=== PATIENT | female | born 1995 | race Caucasian/White ===

== ENCOUNTER → 2024-01-21 06:24 | Day surgery (SDC) | payer OTHER, SELFPAY ==
[2024-01-21 11:13] LABS: HCG, Urine Qualitative Screen Negative
== END ==
LOC: GI 06:24
PROVIDERS: ATTENDING PHYSICIAN Internal Medicine Gastroenterology
DX: K51.311 Ulcerative (chronic) rectosigmoiditis with rectal bleeding (principal); K51.511 Left sided colitis with rectal bleeding; K64.0 First degree hemorrhoids
CPT/HCPCS: 45380; 88305; 81025; 88342

== ENCOUNTER 2024-02-04 11:38 | Emergency (ER) | payer OTHER, SELFPAY ==
[2024-02-04 11:44] VITALS: BP 124/94
[2024-02-04 12:14] VITALS: BP 114/83
[2024-02-04 12:21] LABS: % Basophils 0.6 % (0-2); % Eosinophils 1.2 % (0-6); % Immature Granulocytes 0.4 % (0-0.5); % Monocytes 7.3 % (1.7-9.3); % Neutrophils 72.5 % (42.2-75.2); Absolute Basophils 0.1 10^3/uL (0-0.2); Absolute Eosinophils 0.1 10^3/uL (0-0.7); Absolute Lymphocytes 1.5 10^3/uL (1.2-3.4); Absolute Monocytes 0.6 10^3/uL (0.1-0.6); Absolute Neutrophils 6.1 10^3/uL (1.4-6.5); Hematocrit 36.9 % (37.0-47.0); Hemoglobin 13.1 g/dL (12.0-16.0); Mean Corp Hgb Conc. 35.5 g/dL (33.0-37.0); Mean Corpuscular Volume 87.4 fL (81.0-99.0); Mean Platelet Volume 9.1 fL (7.4-10.4); Nucleated Red Blood Cells % 0 %; Platelet Count 312 10^3/uL (130-400); Red Blood Cell Count 4.22 10^6/uL (4.20-5.40); Red Cell Dist. Width 11.5 % (11.5-14.5); White Blood Cell Count 8.4 10^3/uL (4.8-10.8)
[2024-02-04 12:33] LABS: ALT (SGPT) 12 U/L (0-35); AST (SGOT) 17 U/L (14-36); Albumin 4.4 g/dl (3.5-5.0); Alkaline Phosphatase 45 U/L (38-126); Blood Urea Nitrogen 14 mg/dl (7-17); Calcium 9.5 mg/dl (8.4-10.2); Carbon Dioxide 25 mmol/L (22-30); Chloride 103 mmol/L (98-107); Glucose 122 mg/dl (70-99); Potassium 3.9 mmol/L (3.5-5.1); Sodium 141 mmol/L (135-145); Total Bilirubin 0.3 mg/dl (0.2-1.3); Total Protein 6.9 g/dl (6.3-8.2); eGFR > 60.00
[2024-02-04] MEDS: NSS 1000 IV (12:42)
[2024-02-04 13:00] VITALS: BP 108/75
--- NOTE | 2024-02-04 13:02 | ED.GENMED ---
History of Present Illness
General
Chief Complaint: Dizziness
Source: patient
Exam Limitations: none
Time Seen by Provider: 02/04/24 12:18
History of Present Illness
History of Present Illness:
29-year-old female with known history of ulcerative colitis presents worsening symptoms of fatigue lightheadedness dizziness and persistent bloody bowel movements. She has close follow-up with GI. She has been on mesalamine and was recently placed
on Uceris. The sensation of lightheadedness seem to start after starting Uceris. She notes bright red bloody stools. No vomiting. She thinks she lost a couple pounds. She notes mild abdominal discomfort consistent with her history of colitis.
No fevers. No other complaints
Past History
Past History
ED Past Medical History: None
ED Past Surgical History: Other (wisdom teeth)
Social History
Tobacco: Non-smoker
Alcohol: Occasional
Drug: None
Personal: Single
Living: with family
Employment: Student
Phy Exam
Physical Exam
Physical Exam:
General: Well-appearing female no acute respiratory distress
HEENT: Normocephalic atraumatic
Heart: Regular rate and rhythm no murmur
Lungs: Clear no wheeze
Abdomen soft mildly diffusely tender no guarding rebound normal bowel sounds
Skin: Somewhat pale
Extremities: No cyanosis
Course
Orders/Labs/Results
Orders:
Orders
02/04/24 12:13
Complete Blood Count/With Diff Urgent
Comprehensive Metabolic Panel Urgent
Ferritin Urgent
Comment: ADD ON
Iron Urgent
Comment: ADD ON
Total Iron Binding Urgent
Comment: ADD ON
02/04/24 12:26
0.9% Sodium Chloride 1000 ml [Nss] 1,000 ml IV BOLUS
02/04/24 13:18
STOOL [C difficile Antigen & Toxins] Urgent
MIRIAN Source: Feces/Stool
Specimen Description:
Date Specimen was Collected: 02/04/24
Time Specimen was Collected: 13:15
Stool Culture Urgent
MIRIAN Source: Feces/Stool
Specimen Description:
Date Specimen was Collected: 02/04/24
Time Specimen was Collected: 13:15
02/04/24 14:57
MethylPREDNISolone PF [Solu-Medrol Pf] 20 mg IV ONCE ONE
02/04/24 16:05
Add On- LAB Urgent
Tests Added?: ferritin, TIBC, Iron
Abnormal Lab Results
02/04/24
12:13
Hct 36.9 L %
(37.0-47.0)
Lymphocytes % 18.0 L %
(20.5-51.1)
Glucose 122 H mg/dl
(70-99)
02/04/24 12:13
02/04/24 12:13
Vital Signs
Initial and Last Documented VS:
Initial Vital Signs
Temp Pulse Resp BP Pulse Ox
98.0 F 116 16 124/94 98
02/04/24 11:44 02/04/24 11:44 02/04/24 11:44 02/04/24 11:44 02/04/24 11:44
Last Documented Vital Signs
Temp Pulse Resp BP Pulse Ox
98.0 F 84 22 99/59 100
02/04/24 11:44 02/04/24 15:00 02/04/24 15:00 02/04/24 15:00 02/04/24 15:00
MDM/Problems Addressed
Differential Diagnosis Includes:
Weakness/lightheadedness with ongoing symptoms consistent with ulcerative colitis flare. Consider anemia versus electrolyte abnormality versus dehydration
Will check labs. Hydrate. GI did call in and is recommending starting the patient on prednisone 40 mg daily if able to go home.
Considered imaging but patient has known history of ulcerative colitis. Will hold off on CT scan for now. Stool studies ordered if able to go
*Critical Care Note
Total Time (30-74mins, 75-104mins- exclusive of procedures): Not Applicable
Update Note
Update Note:
Labs reviewed. Normal hemoglobin. Chemistry profile within normal limits. Discussed findings with GI doctor. Patient wishes to go home. Was given a dose of Solu-Medrol IV after discussing with GI and will start on prednisone 40 mg daily until
she starts her biologic medication. She is to stop her budesonide.
ED Attending Note
-
Portions of this chart may have been created with voice recognition software.� Occasional wrong word or��sound alike� substitutions may have occurred due to the inherent limitations of voice recognition software.
Discharge Plan
Departure
Patient Disposition: Home (Routine Discharge)
Date of Disposition: 02/04/24
Time of Disposition: 16:15
Patient with high blood pressure during this ER visit?: No
Discharge Problem:
Colitis
Instructions: Colitis (DC)
Prescriptions:
New
prednisone 20 mg tablet
40 mg PO DAILY Qty: 30 0RF
No Action
prednisone 20 mg tablet
40 mg PO DAILY 4 Days Qty: 8 0RF
epinephrine [EpiPen] 0.3 mg/0.3 mL auto-injector
0.3 mg IM .STAT PRN (Reason: anaphylaxis) Qty: 1 0RF
Referrals:
Colin Nayak DO [Family Provider] -
Activity Restrictions/Additional Instructions:
Continue drinking plenty of fluids. Stop budesonide tablets. Start prednisone tomorrow. Follow-up with GI. Return if needed otherwise
Interventions
Interventions:
*Risk Screen - Suicide Last Done: 02/04/24 11:44
*General Assessment Last Done: 02/04/24 12:28
*Neglect/Abuse Screening Last Done: 02/04/24 11:44
*ED COVID-19 Vaccine History Last Done: 02/04/24 12:28
ED- Neurological Assessment Last Done: 02/04/24 12:28
Discharge Date and Time
Print Language: NAURUAN
[2024-02-04 14:27] VITALS: BP 112/75
[2024-02-04 15:00] VITALS: BP 99/59
[2024-02-04] MEDS: SOLU-MEDROL PF 20 MG IV (15:10)
[2024-02-04 16:00] VITALS: BP 101/75
[2024-02-04 16:38] LABS: Iron 90 ug/dl (37-170)
[2024-02-04 16:48] LABS: Percent Saturation 20 % (20-50); Total Iron Binding Capacity 447 ug/dl (265-497)
[2024-02-04 17:14] LABS: Ferritin 7.4 ng/ml (6.24-137)
== END 2024-02-04 16:48 | disposition home or self-care (01) ==
LOC: EMR 11:38
PROVIDERS: EMERGENCY PHYSICIAN Emergency Medicine; FAMILY PHYSICIAN Family Medicine
DX: R11.2 Nausea with vomiting, unspecified (principal); R42 Dizziness and giddiness; K51.911 Ulcerative colitis, unspecified with rectal bleeding; Z88.2 Allergy status to sulfonamides
CPT/HCPCS: 99284; 96374; 96361; 80053; 82728; 83540; 83550; 85025; 87045; 87046; 87324; 87427; 87449

== ENCOUNTER 2024-03-03 20:39 | Inpatient (IN) | payer OTHER, SELFPAY ==
[2024-03-03 15:31] VITALS: BP 145/92
[2024-03-03 17:01] VITALS: BMI 19.3
[2024-03-03 17:07] VITALS: BP 124/92
[2024-03-03] MEDS: SOLU-MEDROL PF 20 MG IV (17:14)
[2024-03-03] MEDS: NSS 500 IV (17:14)
[2024-03-03 17:17] LABS: % Basophils 0.3 % (0-2); % Eosinophils 0.2 % (0-6); % Immature Granulocytes 0.8 % (0-0.5); % Lymphocytes 15.7 % (20.5-51.1); % Monocytes 6.8 % (1.7-9.3); % Neutrophils 76.2 % (42.2-75.2); Absolute Immature Granulocytes 0.1 10^3/uL (0-0.05); Absolute Lymphocytes 1.6 10^3/uL (1.2-3.4); Absolute Monocytes 0.7 10^3/uL (0.1-0.6); Absolute Neutrophils 7.7 10^3/uL (1.4-6.5); Hematocrit 31.1 % (37.0-47.0); Hemoglobin 10.7 g/dL (12.0-16.0); Mean Corp Hgb Conc. 34.4 g/dL (33.0-37.0); Mean Corpuscular Hgb 28.8 pg (27.0-31.0); Mean Corpuscular Volume 83.6 fL (81.0-99.0); Mean Platelet Volume 8.5 fL (7.4-10.4); Nucleated Red Blood Cells % 0 %; Platelet Count 417 10^3/uL (130-400); Red Blood Cell Count 3.72 10^6/uL (4.20-5.40); Red Cell Dist. Width 11.8 % (11.5-14.5); White Blood Cell Count 10.1 10^3/uL (4.8-10.8)
[2024-03-03 17:27] LABS: INR 1.04; PT 13.4 Sec (11.4-14.6)
[2024-03-03 17:28] LABS: APTT 24.5 Sec (23.4-35.0)
[2024-03-03 17:32] LABS: ALT (SGPT) 13 U/L (0-35); AST (SGOT) 14 U/L (14-36); Albumin 3.5 g/dl (3.5-5.0); Alkaline Phosphatase 63 U/L (38-126); Blood Urea Nitrogen 11 mg/dl (7-17); Carbon Dioxide 25 mmol/L (22-30); Chloride 104 mmol/L (98-107); Creatine Phosphokinase 20 U/L (30-135); Estimated Creatinine Clearance 88 ml/min; Glucose 94 mg/dl (70-99); Magnesium 2.1 mg/dl (1.6-2.3); Potassium 4.4 mmol/L (3.5-5.1); Sodium 139 mmol/L (135-145); Total Bilirubin 0.1 mg/dl (0.2-1.3); eGFR > 60.00
[2024-03-03 18:36] VITALS: BP 124/87
[2024-03-03 19:00] VITALS: BP 122/87
--- NOTE | 2024-03-03 19:40 | ED.GENMED ---
History of Present Illness
General
Chief Complaint: Heart Rate Problem
Source: patient
Exam Limitations: none
Time Seen by Provider: 03/03/24 15:55
Nursing documentation reviewed up to this point in time: agreed with
History of Present Illness
History of Present Illness:
Patient with history of ulcerative colitis, currently being treated for acute exacerbation, presents to ED secondary to continual left-sided intermittent abdominal pain, along with bloody diarrhea, as well as weakness, leg cramping, and chest
palpitations. Patient denies fever or chills. Denies chest pain. Denies shortness of breath. Denies dizziness. Denies decreased appetite. Patient has lost approximately 5 pounds of weight over the past 2 weeks. Patient was evaluated by her GI
physician today, where she was found to be tachycardic and referred to ED for an evaluation, with concern for potential blood clots.
Past History
Past History
ED Past Medical History: None
ED Past Surgical History: Other (wisdom teeth)
Social History
Tobacco: Non-smoker
Alcohol: Occasional
Drug: None
Personal: Single
Living: with family
Employment: Student
Review of Systems
Review of Systems
Allergies reviewed?: Yes
All Other Systems: ROS reviewed and negative except as documented in HPI and ROS
Constitutional: Reports no symptoms
EENT: Reports no symptoms
Respiratory: Reports no symptoms
Cardiac: Reports palpitations
ABD/GI: Reports abdominal pain, diarrhea and bloody stools; Denies nausea or vomiting
: Reports no symptoms
Musculoskeletal: Reports no symptoms
Skin: Reports no symptoms
Neurological: Reports weakness
Phy Exam
Physical Exam
Physical Exam:
Physical Exam
General: mild distress, not acutely ill. afebrile.
Head: nc/at. eomi
Neck: supple. normal range of motion.
Heart: s1/s2 regular rate and rhythm, no murmur. equal radial pulses.
Lungs: no acute respiratory distress. clear bilaterally
Abdomen: normal bowel sounds. not tender.
Neuro: alert and oriented. no focal neurological deficits
Skin: no rash
Psychiatric: well kept. interactive and cooperative
Extremities: no edema. no calf tenderness.
Course
Orders/Labs/Results
Orders:
Orders
03/03/24 Breakfast
Clear Liquid
At Your Request: Full Participation
03/03/24 15:27
Electrocardiogram (*1) Urgent
Reason for Study: Chest Pain
EKG- Treatment ONCE
03/03/24 17:07
IV Insert/Care/Rem.- Treatment PRN
US Legs, Bilateral [US Periph Venous LOWER Ext Joon] Urgent
Comment:
Reason For Exam: calf pain w swelling
03/03/24 17:08
0.9% Sodium Chloride 500 ml [Nss] 500 ml IV BOLUS
MethylPREDNISolone PF [Solu-Medrol Pf] 20 mg IV ONCE ONE
03/03/24 17:09
Type+Screen Urgent
CPK [Creatine Phosphokinase] Urgent
Complete Blood Count/With Diff Urgent
Comprehensive Metabolic Panel Urgent
Ferritin Urgent
Comment: ADD ON
Iron Urgent
Comment: ADD ON
Magnesium Urgent
PTT Urgent
Prothrombin Time Urgent
Total Iron Binding Urgent
Comment: ADD ON
Vitamin B12 Urgent
Comment: ADD ON
03/03/24 18:26
ABO2 Urgent
BBK Wristband Number:
Associate notified that ABO2 has been ordered: [id number]
Date: 03/03/24
Time: 17:18
Head Librarian ID: [id number]
03/03/24 20:25
Admit/Transfer Patient As Directed
Co-Sign Provider:
Level of Care: Inpatient admission
Assign to:: Medical/Surgical
Physician / Group: Ty
Diagnosis: Ulcerative Colitis Flare
Reason for Hospitalization: IV steroids, flex sig
Expected length of stay greater than two midnights?: Yes
ELOS- Estimated Length of Stay in days: 3
I certify the patient meets the requirements for IP care: Yes
PRN Pain Medication Management As Directed
May give lesser potent ordered pain med per pt: Yes
preference::
Protocol:: Medication orders for pain may be administered in a
manner that supports deferring to patient preference
when the pt is:
- Requesting an ordered lesser potent pain medication.
Least to most potent pain medications are defined
as: acetaminophen < NSAID < tramadol < opioids
(morphine, oxycodone, hydromorphone).
- Requesting a lesser dose of the same medication IF
ORDERED.
- Requesting a less intrusive route of administration
if both routes are prescribed by the provider (PO <
IV).
03/03/24 20:28
Code Status As Directed
Resuscitation Status: Full Code
03/03/24 20:29
Add On- LAB Routine
Tests Added?: iron, ferritin, tibc, vit b12
03/03/24 21:22
STOOL [C difficile Antigen & Toxins] Urgent
MIRIAN Source: Feces/Stool
Specimen Description:
Date Specimen was Collected: 03/03/24
Time Specimen was Collected: 21:21
Stool Culture Urgent
MIRIAN Source: Feces/Stool
Specimen Description:
Date Specimen was Collected: 03/03/24
Time Specimen was Collected: 21:21
03/03/24 21:45
0.9% Sodium Chloride 1000 ml [Nss] 1,000 ml IV 100 mls/hr
Acetaminophen [Tylenol] 650 mg PO Q4HPRN PRN
03/03/24 21:45
GASTROINTESTINAL CONSULT Routine
Consulting Provider: Jesus Alberto Martínez
Was physician already notified: Yes
Activity As Directed
Activity Level: Out of Bed-Early Mobility
With Assistance
I&O [Intake/ Output] As Directed
Frequency: q12h
Pneumatic Compression Sleeves As Directed
Type: Knee high
Vital Signs As Directed
Frequency: Per unit guidelines
DX Deep Vein Thrombosis Video Routine
03/03/24 22:00
norgestimate-ethinyl estradiol [Pia-Qj-Peugdr] See Dose Instructions PO HS
03/04/24 02:00
MethylPREDNISolone PF [Solu-Medrol Pf] 20 mg IV Q8H
03/04/24 Breakfast
NPO
Allow oral meds: Yes
Allow clear liquids: 4hrs prior to procedure
NPO with Ice Chips: Yes
Comment: may have unrestricted clear liquid up to 4 hrs prior to scheduled procedure
03/04/24 06:02
Basic Metabolic Panel IN AM
Complete Blood Count/No Diff IN AM
03/04/24 08:00
Pantoprazole [Protonix] 40 mg PO DAILY
Abnormal Lab Results
03/03/24
17:09
RBC 3.72 L 10^6/uL
(4.20-5.40)
Hgb 10.7 L g/dL
(12.0-16.0)
Hct 31.1 L %
(37.0-47.0)
Plt Count 417 H 10^3/uL
(130-400)
Abs Immat Gran (auto) 0.1 H 10^3/uL
(0-0.05)
Absolute Neuts (auto) 7.7 H 10^3/uL
(1.4-6.5)
Absolute Monos (auto) 0.7 H 10^3/uL
(0.1-0.6)
Immature Gran % 0.8 H %
(0-0.5)
Neutrophils % 76.2 H %
(42.2-75.2)
Lymphocytes % 15.7 L %
(20.5-51.1)
Iron 31 L ug/dl
(37-170)
% Saturation 8 L %
(20-50)
Total Bilirubin 0.1 L mg/dl
(0.2-1.3)
Creatine Kinase 20 L U/L
(30-135)
Total Protein 6.0 L g/dl
(6.3-8.2)
03/03/24 17:09
03/03/24 17:09
Vital Signs
Initial and Last Documented VS:
Initial Vital Signs
Temp Pulse Resp BP Pulse Ox
98.2 F 110 16 145/92 100
03/03/24 15:31 03/03/24 15:31 03/03/24 15:31 03/03/24 15:31 03/03/24 15:31
Last Documented Vital Signs
Temp Pulse Resp BP Pulse Ox
98.3 F 102 16 107/67 99
03/04/24 23:42 03/04/24 23:42 03/04/24 23:42 03/04/24 23:42 03/04/24 23:42
MDM/Problems Addressed
MDM/Problems Addressed:
Ultrasound lower extremity ordered, secondary to underlying autoimmune process as well as tachycardia, as well as leg cramping. No evidence of DVT noted. Patient's presenting tachycardia, likely secondary to anemia along with dehydration.
Discussed with GI, . Patient will be admitted to the hospital service for symptomatic treatment, including treatment with IV Solu-Medrol. Tentative plan for flex sigmoidoscopy tomorrow as an inpatient.
Will check stool culture.
*Critical Care Note
Total Time (30-74mins, 75-104mins- exclusive of procedures): Not Applicable
ED Attending Note
-
Portions of this chart may have been created with voice recognition software.� Occasional wrong word or��sound alike� substitutions may have occurred due to the inherent limitations of voice recognition software.
Discharge Plan
Departure
Patient Disposition: Admit
Date of Disposition: 03/03/24
Time of Disposition: 19:46
Admit to: Med/Surg
Presentation/result/management discussed w/ accepting MD/DO: Hospitalist
Discharge Problem:
Exacerbation of ulcerative colitis
Interventions
Interventions:
*Risk Screen - Suicide Last Done: 03/03/24 15:31
*General Assessment Last Done: 03/03/24 17:02
*Neglect/Abuse Screening Last Done: 03/03/24 15:31
ED- Fall Risk Assessment Last Done: 03/03/24 17:07
*ED COVID-19 Vaccine History Last Done: 03/03/24 22:19
*Nursing Disposition Last Done: 03/03/24 21:45
ED- Cardiac Assessment Last Done: 03/03/24 17:06
ED- Pulmonary Assessment Last Done: 03/03/24 17:06
Discharge Date and Time
Discharge Date/Time: 03/03/24 21:46
[2024-03-03 20:00] VITALS: BP 128/97
--- NOTE | 2024-03-03 20:32 | HPS.HSE ---
Addendum entered and electronically signed by Luis Fernando Crawford DO 03/03/24 23:19:
Patient seen and examined independently. Agree with findings and plan as set forth by Tanya Levine PA-C.
Patient is a 29y F with PMH significant for ulcerative colitis who presents to ED complaining of abdominal discomfort and bloody stools for the past 2 months. Patient has been started on Entyvio (2 doses thus far) and oral steroids without
significant improvement in her symptoms. She was seen in the office today by GI and referred to the ED for admission.
Ass:
Ulcerative Colitis with Acute Flare
Acute Blood Loss Anemia / Iron Deficiency Anemia secondary to the above
Plan:
Admit for further evaluation and treatment.
IV SoluMedrol per GI recs.
Supportive care including pain control, IVFs, etc.
IV iron replacement and follow H&H.
GI evaluation for additional recommendations in the AM.
Original Note:
Family Physician
-
Family Physician: Colin Nayak
Chief Complaint
-
Abdominal Pain and Bloody Diarrhea
History of Present Illness
Patient is a 29 y/o female past medical history of ulcerative colitis who presents with abdominal pain and bloody diarrhea. Patient reports persistent left lower quadrant pain and bloody diarrhea despite treatment with oral steroids as outpatient.
She denies changes in appetite and states she feels hungry but oral intake causes diarrhea. She reports general weakness and fatigue. She denies fevers. She was seen by GI today who found her to be tachycardic and referred to the ED for evaluation.
Medical History
Past Medical History
Past Medical History: Reports Other
Additional Past Medical History:
Ulcerative Colitis
Past Surgical History: Reports Other
Additional Past Surgical History:
[place] Teeth
Social History
Tobacco: Non-smoker
Alcohol: Occasional
Family History
Family History: Not pertinent
Allergies / Home Medications
Allergies reflects when Allergies were last updated in [facility].
Home Medications with original date entered in [facility]
Allergy/Medication List:
Allergies
Allergy/AdvReac Type Severity Reaction Status Date / Time
Sulfa (Sulfonamide Allergy Hives Verified 02/04/24 11:47
Antibiotics)
Home Medications
budesonide 2 mg/actuation rectal foam 1 appful MO HS 03/03/24
mesalamine 0.375 gram capsule,extended release 24 hr 1.5 g PO DAILY 03/03/24
norgestimate 0.18 mg/0.215 mg/0.25 mg-ethinyl estradiol 25 mcg tablet (Hyq-Od-Lsipam) 1 tab PO HS 03/03/24
prednisone 10 mg tablet 20 mg PO DAILY 03/03/24
vedolizumab 300 mg intravenous solution 300 mg IV Q4W 03/03/24
Review of Systems
-
A 12 point ROS was completed and negative except as noted: Yes
Constitutional: Reports Night Sweats; Denies Fever
Respiratory: Denies Cough or Trouble Breathing
Cardiac: Denies Chest Pain or Palpitations
Abdomen/GI: Reports See HPI
Physical Exam
Vital Signs
Vital Signs
Temp Pulse Resp BP Pulse Ox
98.2 F 92 14 124/87 99
03/03/24 15:31 03/03/24 18:45 03/03/24 18:45 03/03/24 18:36 03/03/24 18:45
Physical Exam
General: Comfortable, Conversant and Other (Appears pale)
HEENT: Anicteric and Moist mucous membranes
Respiratory: Clear and Non Labored Respirations
Cardiac: S1/S2, Regular Rhythm and Tachycardia (Slightly)
GI: Soft, Non Tender (Mild voluntary guarding) and Other (Hyperactive bowel sounds)
Rectal: Deferred by Provider
Musculoskeletal: No Clubbing, No Cyanosis and No Edema
Skin: Warm and Dry
Neuro: Awake, Alert, Oriented and Nonfocal/grossly intact
Psych: Calm
Laboratory Results
-
03/03/24 17:09
03/03/24 17:09
Laboratory Results
PT 13.4 Sec (11.4-14.6) 03/03/24 17:09
INR 1.04 03/03/24 17:09
APTT 24.5 Sec (23.4-35.0) 03/03/24 17:09
Total Bilirubin 0.1 mg/dl (0.2-1.3) L 03/03/24 17:09
AST 14 U/L (14-36) 03/03/24 17:09
ALT 13 U/L (0-35) 03/03/24 17:09
Alkaline Phosphatase 63 U/L (38-126) 03/03/24 17:09
Data Reviewed
-
Lab Data: Labs Reviewed by me
Old Records: Reviewed
Impression/Plan
-
Acute Ulcerative Colitis Flare
-Consult GI
-Check stool cultures
-Continue Solu-Medrol 20mg q8h
-NPO after midnight for possible flex sig in AM
Acute Blood Loss Anemia secondary to bloody diarrhea
-Check iron studies
-Monitor Hgb
DVT proph: SCDs
Code Status: Full Code
[2024-03-03 21:15] LABS: Iron 31 ug/dl (37-170)
[2024-03-03 21:25] LABS: Percent Saturation 8 % (20-50); Total Iron Binding Capacity 356 ug/dl (265-497)
[2024-03-03 21:45] VITALS: BP 127/86; BMI 18.6
[2024-03-03 21:50] LABS: Ferritin 7.8 ng/ml (6.24-137)
[2024-03-03 22:04] LABS: Vitamin B12 331 pg/ml (239-931)
[2024-03-03] MEDS: NSS 1000 IV (22:34)
--- NOTE | 2024-03-03 22:43 | PTCARENOTE ---
Pt. arrived to 3W on stretcher and ambulated to bed. Assessment and admission complete. VSS. Pt complains of pain only when using the bathroom. Offered Tylenol, pt declined. IVF running @ 100 ml/hr. Will continue to monitor.
[2024-03-04] MEDS: SOLU-MEDROL PF 20 MG IV ×3 (01:49→17:10)
[2024-03-04 06:28] LABS: Hematocrit 27.3 % (37.0-47.0); Hemoglobin 9.5 g/dL (12.0-16.0); Mean Corp Hgb Conc. 34.8 g/dL (33.0-37.0); Mean Corpuscular Hgb 28.8 pg (27.0-31.0); Mean Corpuscular Volume 82.7 fL (81.0-99.0); Mean Platelet Volume 8.5 fL (7.4-10.4); Platelet Count 348 10^3/uL (130-400); Red Cell Dist. Width 11.8 % (11.5-14.5); White Blood Cell Count 11.5 10^3/uL (4.8-10.8)
[2024-03-04 06:53] LABS: Blood Urea Nitrogen 8 mg/dl (7-17); Calcium 9.2 mg/dl (8.4-10.2); Carbon Dioxide 22 mmol/L (22-30); Chloride 104 mmol/L (98-107); Estimated Creatinine Clearance 99 ml/min; Glucose 110 mg/dl (70-99); Potassium 4.4 mmol/L (3.5-5.1); Sodium 139 mmol/L (135-145); eGFR > 60.00
[2024-03-04 07:20] VITALS: BP 119/77
[2024-03-04] MEDS: PROTONIX 40 MG PO (09:08)
--- NOTE | 2024-03-04 09:45 | CON.GI ---
Addendum entered and electronically signed by Jesus Alberto Martínez DO 03/04/24 13:15:
I saw and examined the patient.
The FRAME REPAIRER's note was reviewed and I agree with the note.
Comment: Ms Sidhu is a 29 y.o female with history of ulcerative rectosigmoiditis (diagnosed in 03/2023, now on Entyvio with recent induction on 01/2024 about 3-4 weeks ago, follows closely with Dr. Lancaster) with previous colonoscopy back on 12/2023
with Hensley score 2 in rectosigmoid colon. Ongoing persistent symptoms concerning for flare of UC despite Entyvio induction three weeks ago and ongoing steroids with prednisone as an outpatient. Still with 7-12 bloody stools, weight loss and nocturnal
symptoms concerning for UC flare and/or disease progression. Given her steroid-refractory symptoms and history of UC, CMV colitis should also be ruled out while inpatient. C Diff (-), pending rest of stool studies.
Recommendations:
- Await rest of stool studies, fecal calprotectin
- IV Methylpred 20 mg TiD
- Start IV iron while inpatient
- Plan for flex-sig today with biopsies of rectum and sigmoid to r/o CMV colitis given steroid-refractory symptoms and persistent bloody stools
- Previous discussions were made by her primary Hide Dyer regarding escalation to anti-TNF therapy with IFX as without any response to Entyvio. Will r/o CMV colitis first with eventual plan to initiate IFX 10 mg/kg while inpatient
- Avoidance of all opioids and NSAIDs
- Ensure chemical VTE with lovenox and/or SQH
- Rest of care as below
GI team will continue to follow.
Original Note:
Consultation
-
Date/Time Consultation Requested: 03/03/242144
Date/Time Consultation Performed: 03/04/24 0900
Requesting Provider: MUNIR Lozoya
Performing Provider: Dr. Martínez/LINDSEY Arugeta
Reason for Consultation: ulcerative colitis flare
Medical History
Chief Complaint / HPI
Chief Complaint: palpitations, weakness, rectal bleeding
History of Present Illness:
Elinor is a pleasant 29-year-old female who initially started having symptoms of loose stools with intermittent loose stools in 2020 was diagnosed with ulcerative colitis in March 2023 after having a colonoscopy in [place] and was placed on
Apriso 4 pills daily with good results initially. In October of this year she started having blood again associated with left lower quadrant cramping. The patient underwent a colonoscopy that showed Hensley 2 with elevated Jose Pro of 604 with symptoms.
She was started on prednisone 40 mg daily then Entyvio with induction infusion on February 06 and second dose on February 20 with out any improvement. The patient was having 7-12 bowel movements a day that were straight blood with mucus and tissue in
the bowl. Nocturnal bowel movements. Placed on Proctofoam without any improvement. Weight loss and significant abdominal cramping. Outpatient labs on 03/02/2024 showed WBC count 11.3, hemoglobin 11.0, hematocrit of 33.5 total iron 14, percent
saturation 4 and ferritin of 11. She was having weakness, leg cramps and chest palpitations therefore she went to the emergency room for further evaluation. She has had a weight loss of 5 pounds over the past week. The patient was started on IV
fluids this morning WBC 11.5, hemoglobin 9.5, hematocrit 27.3, platelets 348, PT 13.4, INR 1.04, sodium 139, potassium 4.4, chloride 104, CO2 22, BUN 8, creatinine 0.6, glucose 110, magnesium 2.1, total bilirubin 0.1, AST 14, ALT 13, alk phos 63,
CK20, albumin 3.5, B12 331. The patient was started on Solu-Medrol 20 mg IV every 8. Still with bloody bowel movements with mucus last evening. Some brown stools this morning that are small and loose snake like. Denies any fevers, chills,
nausea, vomiting, melena, hematochezia, dysphagia or odynophagia. No early satiety. The patient's had no recent travel, no sick contacts, no recent antibiotics. She does eat raw sushi and raw shellfish.
Past Medical History
Past Medical History: Other (Ulcerative colitis)
Past Surgical History: Other ([place] teeth)
Social History
Tobacco: Non-Smoker
Alcohol: None
Drug: None
Personal:
Living: With Family
Employment: Employed
Family History
Family History: Other (Maternal second cousin IBD, possible paternal grandfather with colon issues with partial colectomy)
Allergies / Home Medications
Allergy/AdvReac Type Severity Reaction Status Date / Time
Sulfa (Sulfonamide Allergy Hives Verified 02/04/24 11:47
Antibiotics)
�Medication �Instructions �Recorded
budesonide 2 mg/actuation rectal [address] HS 03/03/24
foam
mesalamine 0.375 gram 1.5 g PO DAILY 03/03/24
capsule,extended release 24 hr
norgestimate 0.18 mg/0.215 mg/0.25 1 tab PO HS 03/03/24
mg-ethinyl estradiol 25 mcg tablet
(And-Fo-Ruuvgv)
prednisone 10 mg tablet 20 mg PO DAILY 03/03/24
vedolizumab 300 mg intravenous 300 mg IV Q4W 03/03/24
solution
Review of Systems
-
All other systems: A 12 pt ROS was Negative except as stated above in HPI
Vital Signs
Temp Pulse Resp BP Pulse Ox
98.3 F 98 14 119/77 100
03/04/24 07:20 03/04/24 07:20 03/04/24 07:20 03/04/24 07:20 03/04/24 07:20
Physical Exam
Exam
General: No Apparent Distress
HEENT: Anicteric
Respiratory: Clear
Cardiac: Regular Rhythm
GI: Soft, Non Distended, Normal Bowel Sounds and Tender (Mild left lower quadrant tenderness)
Musculoskeletal: No Edema
Skin: Warm and Dry
Neuro: AO x 3
Psych: Calm
Results
WBC 11.5 10^3/uL (4.8-10.8) H 03/04/24 06:02
Hgb 9.5 g/dL (12.0-16.0) L 03/04/24 06:02
Hct 27.3 % (37.0-47.0) L 03/04/24 06:02
MCV 82.7 fL (81.0-99.0) 03/04/24 06:02
Plt Count 348 10^3/uL (130-400) 03/04/24 06:02
Absolute Neuts (auto) 7.7 10^3/uL (1.4-6.5) H 03/03/24 17:09
PT 13.4 Sec (11.4-14.6) 03/03/24 17:09
INR 1.04 03/03/24 17:09
APTT 24.5 Sec (23.4-35.0) 03/03/24 17:09
Sodium 139 mmol/L (135-145) 03/04/24 06:02
Potassium 4.4 mmol/L (3.5-5.1) 03/04/24 06:02
Chloride 104 mmol/L (98-107) 03/04/24 06:02
Carbon Dioxide 22 mmol/L (22-30) 03/04/24 06:02
BUN 8 mg/dl (7-17) 03/04/24 06:02
Creatinine 0.6 mg/dL (0.6-1.0) 03/04/24 06:02
Calcium 9.2 mg/dl (8.4-10.2) 03/04/24 06:02
Total Bilirubin 0.1 mg/dl (0.2-1.3) L 03/03/24 17:09
AST 14 U/L (14-36) 03/03/24 17:09
ALT 13 U/L (0-35) 03/03/24 17:09
Alkaline Phosphatase 63 U/L (38-126) 03/03/24 17:09
Diagnostic Image Results:
Bilateral lower extremity vascular ultrasound:
IMPRESSION: No evidence of deep venous thrombosis of the lower extremities bilaterally.
Electronically signed by Mykel Nuñez MD, 03/03/2024 6:30 PM
Prior GI Procedures:
EGD: Never
Colonoscopy 03/2023 Dr. Griffith: Inflammation with edema, erosions, friability, granularity from rectum to distal sigmoid moderate. Remainder of colon spared. Path read as active colitis and active proctitis with mild architectural changes.
Jose Pro 07/2023 less than 5; repeat calprotectin in November 2023 604.
Colonoscopy December 2023 terminal ileum normal biopsies taken inflammation with large patches surrounded by normal mucosa in the rectum and sigmoid from 30 to 40 cm. Mild erythema from 30 to 40 cm. Graded as Hensley 2. Findings unchanged. Patent
cecum as well. Internal hemorrhoids small and grade 1. Pathology showed normal small bowel, right sided colon normal, sigmoid with acute and chronic inflammation, left-sided normal, rectum with acute and chronic inflammation minimally inflamed.
Assessment / Plan
-
Elinor is a pleasant 29-year-old female who initially started having symptoms of loose stools with intermittent loose stools in 2020 was diagnosed with ulcerative colitis in March 2023 after having a colonoscopy in [place] and was placed on
Apriso 4 pills daily with good results initially. In October of this year she started having blood again associated with left lower quadrant cramping. The patient underwent a colonoscopy that showed Hensley 2 with elevated Jose Pro of 604 with symptoms.
She was started on prednisone 40 mg daily then Entyvio with induction infusion on February 06 and second dose on February 20 with out any improvement. The patient was having 7-12 bowel movements a day that were straight blood with mucus and tissue in
the bowl. Nocturnal bowel movements. Placed on Proctofoam without any improvement. Weight loss, continued bloody bowel movements with mucus, passing tissue associated with abdominal cramping. Stool negative for C. difficile. Stool culture
pending. Ova and parasites pending.
Impression:
Ulcerative colitis-> flare
Acute blood loss anemia
Plan:
-Flex sig today, check urine hCG, plan to biopsy for CMV
-Continue IV Solu-Medrol 20 mg every 8 hr
-Plan is to initiate Remicade 10 mg/kg after biopsy for CMV and stool studies back
-IV iron
-CBC, BMP daily
-Further recommendations to be forthcoming
-
-
Thank you for consultation and allowing me to participate in the patient's care. Please call the erection shop supervisor GI physician during the after hours with any questions or concerns.
[2024-03-04 10:26] VITALS: BMI 18.6
[2024-03-04 13:18] LABS: HCG, Urine Qualitative Screen Negative
--- NOTE | 2024-03-04 15:11 | W.PN.HOSP.TC ---
Today's Communication/Plan
-
see bold
Assessment / Plan
Assessment / Plan
HPI: 29y F with PMH significant for ulcerative colitis who presents to ED complaining of abdominal discomfort and bloody stools for the past 2 months. Patient has been started on Entyvio (2 doses thus far) and oral steroids without significant
improvement in her symptoms.
Acute Ulcerative Colitis Flare
-Appreciate GI input, 03/04 sigmoidoscopy shows severe left-sided ulcerative colitis, biopsies taken
-Continue IV steroids
-Clear liquid diet, advance as tolerated
-Plan to start Infliximab 10 mg/kg tomorrow as rescue therapy
Acute Blood Loss Anemia secondary to bloody diarrhea
Iron deficiency anemia
-Since patient is now ordered a diet, will change IV iron to oral iron
-Trend hemoglobin, avoid NSAIDs
DVT prophylaxis�subcu Lovenox as per GI
Full code
Total time spent to see the patient on the floor, examine the patient, review data and lab results, discuss treatment plan with patient, nursing staff around 39 minutes.
Updated grandmom at bedside 03/04
Physical Exam
General: No acute distress
HEENT: Normocephalic, Atraumatic, EOMI, MMM
Respiratory: Clear to Auscultation bilaterally
Cardiac: Normal S1/S2, Regular Rate and Rhythm
GI: Soft, tender at the left lower quadrant, Nondistended, Normal Bowel Sounds
Extremities: No Clubbing, Cyanosis, or Edema
Neuro: Nonfocal/Grossly Intact
Psych: Calm, Cooperative
Derm: No Visible lesions
Anticipated Discharge: Within 24 hours
Subjective/Interval History
-
Date of Service: March 04, 2024
Patient reports abdominal cramping with her bowel movements. She continues to have bloody bowel movements this morning. No fever, no vomiting.
Objective Data
-
Labs:
Laboratory Results
03/04/24
06:02
WBC 11.5 H
Hgb 9.5 L
Hct 27.3 L
Plt Count 348
Sodium 139
Potassium 4.4
Chloride 104
Carbon Dioxide 22
BUN 8
Creatinine 0.6
Glucose 110 H
Calcium 9.2
Vital Signs:
Vital Signs
Temp Pulse Resp BP Pulse Ox
98.2 F 92 18 127/86 100
03/03/24 21:45 03/03/24 21:45 03/03/24 21:45 03/03/24 21:45 03/03/24 21:45
I&O
03/03/24 03/04/24 03/05/24
06:59 06:59 06:59
Intake Total 100 / 100
Balance 100 / 100
[2024-03-04 15:15] VITALS: BP 102/64
--- NOTE | 2024-03-04 16:36 | CM ---
Alert awake oriented patient who lives with her So Jhon who lives in a 2 story home with 4 steps to enter and 20 to bed bathroom. She is independent in driving working and in all activities of daily living.Offered VN she declined.
No adaptive devices
Never had VN/SNF
Pharmacy [facility] [id number] Westbrook
PLAN Home no needs
[2024-03-04] MEDS: FERRLECIT 110 MG IV (17:09)
[2024-03-04] MEDS: LOVENOX 40 MG SC (17:10)
[2024-03-04 23:42] VITALS: BP 107/67
[2024-03-05] MEDS: SOLU-MEDROL PF 20 MG IV ×3 (02:10→17:53)
[2024-03-05] MEDS: TUMS CHEWABLE TABLET 200 MG PO (03:03)
[2024-03-05 05:56] LABS: Hemoglobin 10.3 g/dL (12.0-16.0); Mean Corp Hgb Conc. 34.3 g/dL (33.0-37.0); Mean Corpuscular Hgb 28.4 pg (27.0-31.0); Mean Corpuscular Volume 82.6 fL (81.0-99.0); Mean Platelet Volume 8.5 fL (7.4-10.4); Platelet Count 394 10^3/uL (130-400); Red Blood Cell Count 3.63 10^6/uL (4.20-5.40); Red Cell Dist. Width 11.7 % (11.5-14.5); White Blood Cell Count 11.7 10^3/uL (4.8-10.8)
[2024-03-05 06:47] LABS: Blood Urea Nitrogen 12 mg/dl (7-17); Carbon Dioxide 25 mmol/L (22-30); Chloride 101 mmol/L (98-107); Estimated Creatinine Clearance 74 ml/min; Glucose 118 mg/dl (70-99); Potassium 4.3 mmol/L (3.5-5.1); Sodium 138 mmol/L (135-145); eGFR > 60.00
--- NOTE | 2024-03-05 06:53 | W.PN.GI.CBS2 ---
Addendum entered and electronically signed by Jesus Alberto Martínez DO 03/05/24 11:26:
I saw and examined the patient.
The MEDICAL STAFF SERVICES MANAGER's note was reviewed and I agree with the note.
Comment: Ms Sidhu is a 29 y.o female with history of ulcerative rectosigmoiditis (diagnosed in 03/2023, previously on Entyvio with recent induction on 01/2024 about 3-4 weeks ago, follows closely with Dr. Lancaster) with previous colonoscopy back on
12/2023 with Hensley score 2 in rectosigmoid colon. Ongoing persistent symptoms concerning for flare of UC despite Entyvio induction three weeks ago and ongoing steroids with prednisone as an outpatient. Still with 7-12 bloody stools, weight loss and
nocturnal symptoms concerning for UC flare and/or disease progression. Given her steroid-refractory symptoms and history of UC, CMV colitis should also be ruled out while inpatient.
S/p Flex-Sig 03/04/2024: Severe (Hensley Score 3) left-sided ulcerative colitis, worsened since the last examination consistent with disease progression. Multiple biopsies obtained in the descending, sigmoid and rectum to r/o CMV colitis. Sent for mann
Recommendations:
- Low-fiber, low-residue diet as tolerated
- Await rest of additional stool studies including stool culture, stool O&P, C Diff (-)
- Pathology results pending
- IV Solumedrol 20 mg TiD and IV iron
- Trend CRPs q 48 hrs to monitor for biochemical response while inpatient
- Start IFX 10 mg/kg today, 03/05, discussed again with patient and family regarding risks and benefits this AM at bedside
- Continue lovenox despite bloody stools given increased risk for VTE in setting of flare/hospitalization
- Avoidance of all opioids and NSAIDs, okay with tylenol as needed for pain/discomfort
- Rest of care as outlined below
GI will continue to follow while inpatient.
Original Note:
Today's Communication / Plan
-
s/p flex sig with worsening left sided colitis -- bx pending
still with frequent stools and bleeding
cont Solumedrol 20mg Q 8 hours
c-diff neg other stool studies pending, add giardia/crypto and CMV pending from path
to start Infliximab this am with pre med Tylenol and Benadryl
cont low residue diet
cont Lovenox as high risk for DVT with active colitis
-cont IV iron
-CBC, BMP daily
add CRP and trend
support given, family updated
updated and reviewed with nursing staff
Assessment / Plan
-
Elinor is a pleasant 29-year-old female who initially started having symptoms of loose stools with intermittent loose stools in 2020 was diagnosed with ulcerative colitis in March 2023 after having a colonoscopy in [place] and was placed on
Apriso 4 pills daily with good results initially. In October of this year she started having blood again associated with left lower quadrant cramping. The patient underwent a colonoscopy that showed Hensley 2 with elevated Jose Pro of 604 with symptoms.
She was started on prednisone 40 mg daily then Entyvio with induction infusion on February 06 and second dose on February 20 with out any improvement. The patient was having 7-12 bowel movements a day that were straight blood with mucus and tissue in
the bowl. Nocturnal bowel movements. Placed on Proctofoam without any improvement. Weight loss, continued bloody bowel movements with mucus, passing tissue associated with abdominal cramping. Stool negative for C. difficile.
03/05 flex sig - Severe (Hensley Score 3) left-sided ulcerative colitis,
worsened since the last examination consistent with
disease progression. Multiple biopsies obtained in the
descending, sigmoid and rectum to r/o CMV colitis.
Sent for mann.
- The transverse colon and hepatic flexure were normal
with healthy appearing mucosa and intact vascularity
without any endoscopic signs of inflammation.
- Retroflexion in the rectum was not performed due to
the severity of inflammation.
Stool culture pending. Ova and parasites pending. add giardia/crypto
Impression:
Ulcerative colitis-> flare
Acute blood loss anemia--with iron deficiency
wt loss
Plan:
s/p flex sig with worsening left sided colitis -- bx pending
still with frequent stools and bleeding
cont Solumedrol 20mg Q 8 hours
c-diff neg other stool studies pending, add giardia/crypto and CMV pending from path
to start Infliximab this am with pre med Tylenol and Benadryl
cont low residue diet
cont Lovenox as high risk for DVT with active colitis
-cont IV iron
-CBC, BMP daily
add CRP and trend
support given, family updated
updated and reviewed with nursing staff
Subjective
Subjective
Date of Service: March 05, 2024
on low residue diet, still with small volume blood tinged stools with some stool overnight
Objective
Data Reviewed
Laboratory Data:
Laboratory Results
03/05/24 05:36
03/05/24 05:36
Laboratory Results
PT 13.4 Sec (11.4-14.6) 03/03/24 17:09
INR 1.04 03/03/24 17:09
APTT 24.5 Sec (23.4-35.0) 03/03/24 17:09
Magnesium 2.0 mg/dl (1.6-2.3) 03/05/24 05:36
Total Bilirubin 0.1 mg/dl (0.2-1.3) L 03/03/24 17:09
AST 14 U/L (14-36) 03/03/24 17:09
ALT 13 U/L (0-35) 03/03/24 17:09
Alkaline Phosphatase 63 U/L (38-126) 03/03/24 17:09
Vital Signs and I&O:
Vital Signs
Temp Pulse Resp BP Pulse Ox
98.3 F 102 16 107/67 99
03/04/24 23:42 03/04/24 23:42 03/04/24 23:42 03/04/24 23:42 03/04/24 23:42
I&O
03/03/24 03/04/24 03/05/24
06:59 06:59 06:59
Intake Total 100 / 100 600 / 600
Balance 100 / 100 600 / 600
Physical Exam
Physical Exam
HEENT: Anicteric and Moist mucous membranes
Cardiology: Normal Sinus Rhythm
Pulmonary: Clear
GI: Soft, Non Distended, Non Tender and Other (thin appearing)
Extremities: No Edema
Neuro: Non Focal
[2024-03-05 08:19] VITALS: BP 112/72
--- NOTE | 2024-03-05 08:59 | W.PN.HOSP.TC ---
Today's Communication/Plan
-
see bold
Assessment / Plan
Assessment / Plan
HPI: 29y F with PMH significant for ulcerative colitis who presents to ED complaining of abdominal discomfort and bloody stools for the past 2 months. Patient has been started on Entyvio (2 doses thus far) and oral steroids without significant
improvement in her symptoms.
Acute Ulcerative Colitis Flare
-Appreciate GI input, 03/04 sigmoidoscopy shows severe left-sided ulcerative colitis, biopsies taken
-Continue IV steroids, low residue diet
-Plan to start Infliximab 10 mg/kg today as rescue therapy
Acute Blood Loss Anemia secondary to bloody diarrhea
Iron deficiency anemia
-Continue IV iron while inpatient, will change to oral iron upon discharge
-Trend hemoglobin, avoid NSAIDs
DVT prophylaxis�subcu Lovenox as per GI
Full code
Total time spent to see the patient on the floor, examine the patient, review data and lab results, discuss treatment plan with patient, nursing staff around 38 minutes.
Updated grandmom at bedside 03/04
Updated mom at bedside 03/05
Physical Exam
General: No acute distress
HEENT: Normocephalic, Atraumatic, EOMI, MMM
Respiratory: Clear to Auscultation bilaterally
Cardiac: Normal S1/S2, Regular Rate and Rhythm
GI: Soft, tender at the left lower quadrant, Nondistended, Normal Bowel Sounds
Extremities: No Clubbing, Cyanosis, or Edema
Neuro: Nonfocal/Grossly Intact
Psych: Calm, Cooperative
Derm: No Visible lesions
Anticipated Discharge: > 48 hours
Subjective/Interval History
-
Date of Service: March 05, 2024
Patient reports left-sided abdominal pain with bowel movements. Continues to have bloody diarrhea, frequency and volume and unchanged. No nausea, no vomiting. No fever. She does have some dizziness with standing, that resolves after a few
minutes.
Objective Data
-
Labs:
Laboratory Results
03/05/24
05:36
WBC 11.7 H
Hgb 10.3 L
Hct 30.0 L
Plt Count 394
Sodium 138
Potassium 4.3
Chloride 101
Carbon Dioxide 25
BUN 12
Creatinine 0.8
Glucose 118 H
Calcium 10.0
Vital Signs:
Vital Signs
Temp Pulse Resp BP Pulse Ox
98.3 F 90 16 112/72 100
03/05/24 08:19 03/05/24 08:19 03/05/24 08:19 03/05/24 08:19 03/05/24 08:19
I&O
03/04/24 03/05/24 03/06/24
06:59 06:59 06:59
Intake Total 100 / 100 600 / 600 830 / 830
Balance 100 / 100 600 / 600 830 / 830
--- NOTE | 2024-03-05 10:16 | PN.CDI ---
CDI
- -
CDI:
Physician Documentation Request
Admit Date: 03/03/24 20:39
Dear Doctor Do,
Patient admitted for ulcerative colitis flare.
Please review the following and provide your response in the progress notes.
Clinical Indicators:
Height: 5' 1'
Weight: 98 lbs
BMI: 18.6
If possible, please provide an associated diagnosis related to the abnormal BMI, such as:
Underweight
Cachectic
BMI is not significant
Other
BMI < or = to 19.9
Underweight
Weight Loss
Cachectic
Anorexia
Use of terms such as suspected, likely, concern for, or probable (associated with a specific diagnosis that is being evaluated, monitored, or treated as if it exists) are acceptable and can be coded in the inpatient setting, when documented at the
time of discharge.
Thank you,
Alexia Gurrola RN, BSN
CDI Specialist
Available via [place] text
Please use your independent medical judgment in providing your response.
[2024-03-05] MEDS: BENADRYL 50 MG PO (10:35)
[2024-03-05] MEDS: TYLENOL 650 MG PO (10:35)
[2024-03-05] MEDS: REMICADE 250 MG IV (11:24)
--- NOTE | 2024-03-05 13:13 | CM ---
Chart reviewed, home when stable, no needs.
Plan; Home no needs when stable.
--- NOTE | 2024-03-05 14:30 | PTCARENOTE ---
Patient tolerated remicade infusion well. No s/s adverse reaction noted, VSS throughout infusion. Q15 min checks done per protocol and rate adjusted accordingly - see worklist documentation. Following remicade transfusion, pt voiced concern for also
getting iron infusion today - reported anxious regarding transfusion reaction because experiencing facial flushing hours s/p iron infusion yesterday. Patients concerns relayed to MD, iron dose refused today, will follow up labs in AM.
[2024-03-05 15:00] VITALS: BP 108/69
[2024-03-05] MEDS: FERRLECIT IV (15:19)
[2024-03-05] MEDS: LOVENOX 40 MG SC (17:54)
[2024-03-05] MEDS: MYLICON 80 MG PO (20:27)
[2024-03-05] MEDS: NON-FORMULARY ITEM 1 TABLET PO (21:42)
[2024-03-05 23:43] VITALS: BP 108/71
[2024-03-06] MEDS: SOLU-MEDROL PF 20 MG IV ×2 (02:40→09:29)
[2024-03-06 06:11] LABS: Hematocrit 31.8 % (37.0-47.0); Hemoglobin 10.8 g/dL (12.0-16.0); Mean Corpuscular Hgb 29.3 pg (27.0-31.0); Mean Corpuscular Volume 86.2 fL (81.0-99.0); Mean Platelet Volume 8.4 fL (7.4-10.4); Platelet Count 393 10^3/uL (130-400); Red Blood Cell Count 3.69 10^6/uL (4.20-5.40); Red Cell Dist. Width 11.9 % (11.5-14.5); White Blood Cell Count 12.6 10^3/uL (4.8-10.8)
[2024-03-06 06:44] LABS: Blood Urea Nitrogen 16 mg/dl (7-17); Calcium 9.8 mg/dl (8.4-10.2); Carbon Dioxide 25 mmol/L (22-30); Chloride 100 mmol/L (98-107); Estimated Creatinine Clearance 66 ml/min; Glucose 106 mg/dl (70-99); Potassium 4.8 mmol/L (3.5-5.1); Sodium 140 mmol/L (135-145); eGFR > 60.00
[2024-03-06 07:24] VITALS: BP 120/78
--- NOTE | 2024-03-06 08:48 | W.PN.GI.CBS2 ---
Addendum entered and electronically signed by Jesus Alberto Martínez DO 03/06/24 12:45:
I saw and examined the patient.
The PROCEDURES ANALYST's note was reviewed and I agree with the note.
Comment: Ms Sidhu is a very pleasant 29 y.o female with history of ulcerative rectosigmoiditis (diagnosed in 03/2023, previously on Entyvio with recent induction on 01/2024 about 3-4 weeks ago, follows closely with Dr. Lancaster) with previous
colonoscopy back on 12/2023 with Hensley score 2 in rectosigmoid colon. Ongoing persistent symptoms concerning for flare of UC despite Entyvio induction three weeks ago and ongoing steroids with prednisone as an outpatient. Still with 7-12 bloody
stools, weight loss and nocturnal symptoms concerning for UC flare and/or disease progression. Given her steroid-refractory symptoms and history of UC, CMV colitis should also be ruled out while inpatient.
S/p Flex-Sig 03/04/2024: Severe (Hensley Score 3) left-sided ulcerative colitis, worsened since the last examination consistent with disease progression. Multiple biopsies obtained in the descending, sigmoid and rectum to r/o CMV colitis. Sent for mann
with pathology (-) for CMV colitis
S/p IFX 10 mg/kg on 03/05 with symptomatic improvement with less bloody stools (one bloody BM over 24 hrs) without any nocturnal symptoms or ongoing abdominal pain.
Recommendations:
- Tolerating low-fiber, low-residue diet
- Stop IV steroids, start oral Prednisone 40 mg once daily this afternoon
- Favor monitoring for additional 24 hrs once she has been transitioned to p.o prednisone
- Can be tapered slowly as outpatient. Would discharge on Prednisone 40 mg once daily and decrease by 10 mg q weekly
- S/p IFX 10 mg/kg on 03/05 (first-induction dose), no plans for second infusion while inpatient
- Will complete additional induction infusions as an outpatient, next IV infusion is currently scheduled on 03/18 (week 2 of induction)
- Pathology (-) CMV colitis with [id number] inflammation on biopsies
- Continue IV iron while inpatient
- Trend CRPs q 48 hrs to monitor for biochemical response while inpatient, pending repeat CRP
- Continue lovenox despite bloody stools given increased risk for VTE in setting of flare/hospitalization
- Avoidance of all opioids and NSAIDs, okay with tylenol as needed for pain/discomfort
- Rest of care as outlined below
If ongoing improvement over next 24 hrs, can likely be discharged tomorrow afternoon with close outpatient f/u with her primary Fitness Manager, Dr. Lancaster.
Discussed with primary internal medicine team. GI will continue to follow while inpatient.
Original Note:
Today's Communication / Plan
-
s/p flex sig with worsening left sided colitis -- bx with neg CMV mild to moderate inflammation
still with frequent stools and bleeding but less over last 24 hours
will transition to PO steroids Prednisone 40mg daily -- start later today as just had IV dose this am
add pepcid with PO steroid use
discussed if continued need for steroid will need calcium and vitamin D supplement
CRP 39.6 then 29.2
c-diff, ecoli neg other stool studies pending, giardia/crypto not sent will hold with improvment, O +P pending and CMV neg from path
s/p Remicade 03/05 tolerated without difficulty -- will review with office for ongoing infusions
cont low residue diet with supplement --get dietary consult with wt loss
cont Lovenox as high risk for DVT with active colitis
-cont IV iron
-CBC, BMP daily
support given, family updated
Assessment / Plan
-
Elinor is a pleasant 29-year-old female who initially started having symptoms of loose stools with intermittent loose stools in 2020 was diagnosed with ulcerative colitis in March 2023 after having a colonoscopy in [place] and was placed on
Apriso 4 pills daily with good results initially. In October of this year she started having blood again associated with left lower quadrant cramping. The patient underwent a colonoscopy that showed Hensley 2 with elevated Jose Pro of 604 with symptoms.
She was started on prednisone 40 mg daily then Entyvio with induction infusion on February 06 and second dose on February 20 with out any improvement. The patient was having 7-12 bowel movements a day that were straight blood with mucus and tissue in
the bowl. Nocturnal bowel movements. Placed on Proctofoam without any improvement. Weight loss, continued bloody bowel movements with mucus, passing tissue associated with abdominal cramping. Stool negative for C. difficile.
03/05 flex sig - Severe (Hensley Score 3) left-sided ulcerative colitis,
worsened since the last examination consistent with
disease progression. Multiple biopsies obtained in the
descending, sigmoid and rectum to r/o CMV colitis.
Sent for mann.
- The transverse colon and hepatic flexure were normal
with healthy appearing mucosa and intact vascularity
without any endoscopic signs of inflammation.
- Retroflexion in the rectum was not performed due to
the severity of inflammation.
Impression:
Ulcerative colitis-> flare
Acute blood loss anemia--with iron deficiency
wt loss
Plan:
s/p flex sig with worsening left sided colitis -- bx with neg CMV mild to moderate inflammation
still with frequent stools and bleeding but less over last 24 hours
will transition to PO steroids Prednisone 40mg daily -- start later today as just had IV dose this am
add pepcid with PO steroid use
discussed if continued need for steroid will need calcium and vitamin D supplement
CRP 39.6 then 29.2
c-diff, ecoli neg other stool studies pending, giardia/crypto not sent will hold with improvment, O +P pending and CMV neg from path
s/p Remicade 03/05 tolerated without difficulty -- will review with office for ongoing infusions
cont low residue diet with supplement --get dietary consult with wt loss
cont Lovenox as high risk for DVT with active colitis
-cont IV iron
-CBC, BMP daily
support given, family updated
Subjective
Subjective
Date of Service: March 06, 2024
03/06 blood tinged stool but overall less stools , on low residue with supplement asking about further supplement for wt loss
Objective
Data Reviewed
Laboratory Data:
Laboratory Results
03/06/24 05:47
03/06/24 05:47
Laboratory Results
PT 13.4 Sec (11.4-14.6) 03/03/24 17:09
INR 1.04 03/03/24 17:09
APTT 24.5 Sec (23.4-35.0) 03/03/24 17:09
Magnesium 2.0 mg/dl (1.6-2.3) 03/05/24 05:36
Total Bilirubin 0.1 mg/dl (0.2-1.3) L 03/03/24 17:09
AST 14 U/L (14-36) 03/03/24 17:09
ALT 13 U/L (0-35) 03/03/24 17:09
Alkaline Phosphatase 63 U/L (38-126) 03/03/24 17:09
Vital Signs and I&O:
Vital Signs
Temp Pulse Resp BP Pulse Ox
98.5 F 95 16 120/78 100
03/06/24 07:24 03/06/24 07:24 03/06/24 07:24 03/06/24 07:24 03/06/24 07:24
I&O
03/05/24 03/06/24 03/07/24
06:59 06:59 06:59
Intake Total 600 / 600 3080 / 3080
Balance 600 / 600 3080 / 3080
Physical Exam
Physical Exam
HEENT: Anicteric and Moist mucous membranes
Cardiology: Normal Sinus Rhythm
Pulmonary: Clear
GI: Soft, Non Distended, Tender (minimal around lovenox site ) and Other (thin abdominal girth )
Extremities: No Edema
Neuro: Non Focal
--- NOTE | 2024-03-06 08:55 | W.PN.HOSP.TC ---
Today's Communication/Plan
-
see bold
Assessment / Plan
Assessment / Plan
HPI: 29y F with PMH significant for ulcerative colitis who presents to ED complaining of abdominal discomfort and bloody stools for the past 2 months. Patient has been started on Entyvio (2 doses thus far) and oral steroids without significant
improvement in her symptoms.
Acute Ulcerative Colitis Flare
-Appreciate GI input, 03/04 sigmoidoscopy shows severe left-sided ulcerative colitis, biopsies taken
-Currently on IV steroids, plan to change to prednisone 40 mg p.o. daily today
-S/p Infliximab 10 mg/kg on 03/05, next infusion planned for 03/18
-Possible discharge tomorrow with continued improvement
Acute Blood Loss Anemia secondary to bloody diarrhea
Iron deficiency anemia
-Continue IV iron while inpatient, patient states she does not tolerate oral iron�counseled her to eat foods high in iron
-Trend hemoglobin, avoid NSAIDs
Mild leukocytosis
�Secondary to steroids
BMI 18.6
-Normal range
DVT prophylaxis�subcu Lovenox as per GI
Full code
Total time spent to see the patient on the floor, examine the patient, review data and lab results, discuss treatment plan with patient, nursing staff around 45 minutes.
Updated mom at bedside 03/06
Physical Exam
General: No acute distress
HEENT: Normocephalic, Atraumatic, EOMI, MMM
Respiratory: Clear to Auscultation bilaterally
Cardiac: Normal S1/S2, Regular Rate and Rhythm
GI: Soft, tender at the left lower quadrant, Nondistended, Normal Bowel Sounds
Extremities: No Clubbing, Cyanosis, or Edema
Neuro: Nonfocal/Grossly Intact
Psych: Calm, Cooperative
Derm: No Visible lesions
Anticipated Discharge: Within 24 hours
Subjective/Interval History
-
Date of Service: March 06, 2024
Patient reports improvement in abdominal pain and number/volume of bloody diarrhea. Amount of blood also seems to improved. No fever, no vomiting.
Objective Data
-
Labs:
Laboratory Results
03/06/24
05:47
WBC 12.6 H
Hgb 10.8 L
Hct 31.8 L
Plt Count 393
Sodium 140
Potassium 4.8
Chloride 100
Carbon Dioxide 25
BUN 16
Creatinine 0.9
Glucose 106 H
Calcium 9.8
Vital Signs:
Vital Signs
Temp Pulse Resp BP Pulse Ox
98.5 F 95 16 120/78 100
03/06/24 07:24 03/06/24 07:24 03/06/24 07:24 03/06/24 07:24 03/06/24 07:24
I&O
03/05/24 03/06/24 03/07/24
06:59 06:59 06:59
Intake Total 600 / 600 3080 / 3080
Balance 600 / 600 3080 / 3080
[2024-03-06] MEDS: MYLICON 80 MG PO (11:37)
--- NOTE | 2024-03-06 11:56 | CM ---
Home no needs when stable.
Plan; Home no needs.
[2024-03-06] MEDS: FERRLECIT 110 MG IV (13:54)
--- NOTE | 2024-03-06 14:37 | CM ---
TC from Franco Strickland from [facility] p# [phone], reference # [id number] (used to help ID patient), called to offer assistance with d/c planning if needed.
[2024-03-06 15:17] VITALS: BP 115/73
[2024-03-06] MEDS: LOVENOX 40 MG SC (17:01)
[2024-03-06] MEDS: DELTASONE 40 MG PO (17:01)
--- NOTE | 2024-03-06 20:50 | PTCARENOTE ---
pt reports improving bowel movement, only one today during the day. pt also states that her indigestion occurring only after drinking ensure. pt ambulatory in halls, steady gait, no complaints at this time. pt and family updated on POC, call beasley
within reach
[2024-03-06] MEDS: NON-FORMULARY ITEM 1 TABLET PO (20:51)
[2024-03-06 23:30] VITALS: BP 102/69
[2024-03-07] MEDS: MYLICON 80 MG PO (05:25)
[2024-03-07 06:06] LABS: Hematocrit 31.6 % (37.0-47.0); Hemoglobin 10.5 g/dL (12.0-16.0); Mean Corp Hgb Conc. 33.2 g/dL (33.0-37.0); Mean Corpuscular Hgb 29.2 pg (27.0-31.0); Mean Platelet Volume 8.6 fL (7.4-10.4); Platelet Count 390 10^3/uL (130-400); Red Blood Cell Count 3.59 10^6/uL (4.20-5.40); Red Cell Dist. Width 11.8 % (11.5-14.5); White Blood Cell Count 13.9 10^3/uL (4.8-10.8)
[2024-03-07] MEDS: PEPCID 20 MG PO (07:09)
[2024-03-07] MEDS: DELTASONE 40 MG PO (07:09)
--- NOTE | 2024-03-07 07:31 | W.PN.HOSP.TC ---
Today's Communication/Plan
-
Discharge today
Assessment / Plan
Assessment / Plan
HPI: 29y F with PMH significant for ulcerative colitis who presents to ED complaining of abdominal discomfort and bloody stools for the past 2 months. Patient has been started on Entyvio (2 doses thus far) and oral steroids without significant
improvement in her symptoms.
Acute Ulcerative Colitis Flare
-Appreciate GI input, 03/04 sigmoidoscopy shows severe left-sided ulcerative colitis, biopsies taken
-S/p IV steroids, currently on prednisone 40 mg daily
-S/p Infliximab 10 mg/kg on 03/05, next infusion planned for 03/18
-Dr. Martínez rec discharge on Prednisone 40 mg once daily and decrease by 10 mg q weekly
-Follow-up with her usual GI doctor in the office as scheduled on 04/05
-Discharge on pepcid & Ca w/ vit D supp per GI
-Follow-up with her usual GI doctor in the office as scheduled on 04/05
Acute Blood Loss Anemia secondary to bloody diarrhea
Iron deficiency anemia
-Continue IV iron while inpatient, patient states she does not tolerate oral iron�counseled her to eat foods high in iron
-Hgb stable, avoid NSAIDs
Mild leukocytosis
�Secondary to steroids
BMI 18.6
-Normal range
DVT prophylaxis�subcu Lovenox as per GI
Full code
Updated mom at bedside 03/07
Physical Exam
General: No acute distress
HEENT: Normocephalic, Atraumatic, EOMI, MMM
Respiratory: Clear to Auscultation bilaterally
Cardiac: Normal S1/S2, Regular Rate and Rhythm
GI: Soft, tender at the left lower quadrant, Nondistended, Normal Bowel Sounds
Extremities: No Clubbing, Cyanosis, or Edema
Neuro: Nonfocal/Grossly Intact
Psych: Calm, Cooperative
Derm: No Visible lesions
Anticipated Discharge: Today
Subjective/Interval History
-
Date of Service: March 07, 2024
Number of bowel movements, volume, blood, and abdominal pain all improved. Tolerating a low residue diet. No fever, no vomiting. She is eager for discharge
Objective Data
-
Labs:
Laboratory Results
03/07/24
05:41
WBC 13.9 H
Hgb 10.5 L
Hct 31.6 L
Plt Count 390
Vital Signs:
Vital Signs
Temp Pulse Resp BP Pulse Ox
98.3 F 88 14 102/69 96
03/06/24 23:30 03/06/24 23:30 03/06/24 23:30 03/06/24 23:30 03/06/24 23:30
I&O
03/06/24 03/07/24 03/08/24
06:59 06:59 06:59
Intake Total 3079 / 3080 1879
Balance 0 / 3080 1879
[2024-03-07 07:34] VITALS: BP 118/77
--- NOTE | 2024-03-07 07:55 | W.PN.GI.CBS2 ---
Today's Communication / Plan
-
Discharge today on Prednisone 40mg, Dr. Lancaster to taper as outpatient.
Assessment / Plan
-
Elinor is a pleasant 29-year-old female who initially started having symptoms of loose stools with intermittent loose stools in 2020 was diagnosed with ulcerative colitis in March 2023 after having a colonoscopy in [place] and was placed on
Apriso 4 pills daily with good results initially. In October of this year she started having blood again associated with left lower quadrant cramping. The patient underwent a colonoscopy that showed Hensley 2 with elevated Jose Pro of 604 with symptoms.
She was started on prednisone 40 mg daily then Entyvio with induction infusion on February 06 and second dose on February 20 with out any improvement. The patient was having 7-12 bowel movements a day that were straight blood with mucus and tissue in
the bowl. Nocturnal bowel movements. Placed on Proctofoam without any improvement. Weight loss, continued bloody bowel movements with mucus, passing tissue associated with abdominal cramping. Stool negative for C. difficile.
03/05 flex sig - Severe (Hensley Score 3) left-sided ulcerative colitis,
worsened since the last examination consistent with
disease progression. Multiple biopsies obtained in the
descending, sigmoid and rectum to r/o CMV colitis.
Sent for mann.
- The transverse colon and hepatic flexure were normal
with healthy appearing mucosa and intact vascularity
without any endoscopic signs of inflammation.
- Retroflexion in the rectum was not performed due to
the severity of inflammation.
-s/p flex sig with worsening left sided colitis -- bx with neg CMV mild to moderate inflammation
-CRP 39.6 then 29.2
-c-diff, salmonella, shigella, camplobacter neg; O & P pending; CMV neg. on colon biopsies
-s/p 1st loading dose of Remicade on 03/05
Impression:
Ulcerative colitis-> flare
Acute blood loss anemia--with iron deficiency
wt loss
Plan:
-tolerating low residue diet without issue
-Transitioned to PO Prednisone 40mg, will discharge on this dose and will taper as an outpatient with Dr. Lancaster
-continue pepcid 20mg daily
-Needs Ca and Vit. D supplementation while on prednisone
-2nd loading dose of Infliximab scheduled for 03/18 @ 8:30 AM; office f/u with Dr. Lancaster scheduled for 04/15 @ 7:30 AM
Okay for discharge today from a GI perspective. GI will sign off, please call with questions.
Subjective
Subjective
Date of Service: March 07, 2024
Patient reports ongoing improvement in symptoms. She had 3 BMs over the last 24 hours, 1 bowel movement around 3 AM, formed with small specks of blood. She admits to only mild lower abdominal cramping, which was transient, she feels it was likely
gas pains. She is tolerating a low residue diet.
Objective
Data Reviewed
Laboratory Data:
Laboratory Results
03/07/24 05:41
03/06/24 05:47
Laboratory Results
PT 13.4 Sec (11.4-14.6) 03/03/24 17:09
INR 1.04 03/03/24 17:09
APTT 24.5 Sec (23.4-35.0) 03/03/24 17:09
Magnesium 2.0 mg/dl (1.6-2.3) 03/05/24 05:36
Total Bilirubin 0.1 mg/dl (0.2-1.3) L 03/03/24 17:09
AST 14 U/L (14-36) 03/03/24 17:09
ALT 13 U/L (0-35) 03/03/24 17:09
Alkaline Phosphatase 63 U/L (38-126) 03/03/24 17:09
Vital Signs and I&O:
Vital Signs
Temp Pulse Resp BP Pulse Ox
97.9 F 68 16 118/77 100
03/07/24 07:34 03/07/24 07:34 03/07/24 07:34 03/07/24 07:34 03/07/24 07:34
I&O
03/06/24 03/07/24 03/08/24
06:59 06:59 06:59
Intake Total 3080 / 3080 1879
Balance 3080 / 3080 1879
Physical Exam
Physical Exam
HEENT: Anicteric and Moist mucous membranes
Cardiology: Normal Sinus Rhythm
Pulmonary: Clear
GI: Soft, Non Distended, Non Tender and Normal Bowel Sounds
Neuro: Non Focal
--- NOTE | 2024-03-07 10:40 | W.DCSUMMARY ---
Discharge Summary
Discharge Data
Date of Admission: 03/03/24
Date of Discharge: 03/07/24
-
Pending Results: No
Additional Pending Results:
Colon biopsy
Hospital Course
Discharge diagnosis:
Severe left-sided ulcerative colitis
Bloody diarrhea
Acute blood loss anemia
Iron deficiency anemia
Mild leukocytosis
Consults: GI
03/04/24 sigmoidoscopy shows severe left-sided ulcerative colitis, biopsies taken
Hospital course:
29-year-old female with a past medical history of ulcerative colitis was admitted for an acute ulcerative colitis flare. Patient was seen in conjunction with GI, and treated with IV steroids. Sigmoidoscopy shows severe left-sided ulcerative
colitis, worsened from prior.
She received a dose of infliximab/Remicade on 03/05/2024. Patient's abdominal pain and bloody bowel movements improved. She tolerated a low residue. Her CRP trended down.
For her iron deficiency anemia, she did receive IV iron while in the hospital. She reports that oral iron gives her GI upset. She has been counseled to eat iron rich foods, such as liver, clams, oysters, mussels, beef, etc.
Dr. Martínez recommended that she be discharged on prednisone 40 mg daily, to be decreased by 10 mg every week. She will be discharged on Pepcid as well as calcium with vitamin D supplements. She needs to follow-up with her usual public bath attendant
on 04/05/2024. Her next dose of Remicade infusion is scheduled for 03/18/2024.
Disposition: Home self-care
Discharge planning: Required 41 minutes
Discharge Plan
-
Patient Disposition: Home (Routine Discharge)
Discharge Diagnosis/Procedures: Severe ulcerative colitis flare, bloody diarrhea, iron deficiency anemia
Condition: Fair
Diet: Low Fiber
Activity: As tolerated
Driving Restrictions: As prior to admission
Activity Restrictions/Additional Instructions:
2nd loading dose of Infliximab scheduled for 03/18 @ 8:30 AM; office f/u with Dr. Lancaster scheduled for 04/15 @ 7:30 AM.
Please avoid all kaop-[id number] NSAID medications such as ibuprofen, naproxen, Aleve, Motrin, Advil.
Continue eating foods rich in iron, such as liver, clams, oysters, beef, etc.
Follow-up with your primary care doctor 1 week, GI in the office as scheduled.
Referrals:
Colin Nayak DO [Family Provider] - in one week
Prescriptions:
New
famotidine 20 mg Tablet
20 mg PO DAILY Qty: 30 0RF
simethicone 80 mg Tablet,Chewable
80 mg PO QIDPRN PRN (Reason: gas) Qty: 30 0RF
prednisone 10 mg Tablet
See Rx Instructions .ROUTE .COMPLEX Qty: 70 0RF
Rx Instructions:
Take 40 mg daily, decrease by 10 mg every week
calcium carbonate-vitamin D3 [Calcium with Vitamin D] 600 mg-10 mcg (400 unit) tablet
1 tab PO BID Qty: 60 0RF
Continued
norgestimate-ethinyl estradiol [Omw-Qz-Pieqjr] 0.18/0.215/0.25 mg-25 mcg Tablet
1 tab PO HS
Discontinued
prednisone 10 mg Tablet
20 mg PO DAILY
mesalamine 0.375 gram Capsule,Extended Release 24hr
1.5 g PO DAILY
vedolizumab 300 mg Recon Soln
300 mg IV Q4W
budesonide 2 mg/actuation Foam
1 appful [place] HS
Discharge Orders:
Discharge Patient (As Directed); Ordered 03/07/24
Ordered By: Cullen Stallings
Discharge Date and Time
Discharge Date/Time: 03/07/24 11:23
Print Language: BOLIVIAN
--- NOTE | 2024-03-07 10:59 | CM ---
Home today no needs.
Plan; Home no needs.
== END 2024-03-07 11:23 | disposition home or self-care (01) | DRG 386 ==
LOC: 3 WEST ACU 20:39
PROVIDERS: Nurse Practitioner; Nurse Practitioner Adult Health; Physician Assistant Medical; ADMITTING PHYSICIAN Hospitalist; ATTENDING PHYSICIAN Family Medicine; CONSULT PHYSICIAN Student in an Organized Health Care Education/Training Program; EMERGENCY PHYSICIAN Emergency Medicine; FAMILY PHYSICIAN Family Medicine
PROC: 0DBN8ZX Excision of Sigmoid Colon, Via Natural or Artificial Opening Endoscopic, Diagnostic (ICD-10-PCS; 2024-03-04)
PROC: 0DBM8ZX Excision of Descending Colon, Via Natural or Artificial Opening Endoscopic, Diagnostic (ICD-10-PCS; 2024-03-04)
PROC: 0DBP8ZX Excision of Rectum, Via Natural or Artificial Opening Endoscopic, Diagnostic (ICD-10-PCS; 2024-03-04)
DX: K51.511 Left sided colitis with rectal bleeding (principal); D62 Acute posthemorrhagic anemia; Z68.1 Body mass index [BMI] 19.9 or less, adult; R63.4 Abnormal weight loss; D50.9 Iron deficiency anemia, unspecified; K64.8 Other hemorrhoids; Z79.899 Other long term (current) drug therapy; Z88.2 Allergy status to sulfonamides
CPT/HCPCS: 88305; 80048; 80053; 81025; 82550; 82607; 82728; 83540; 83550; 83735; 85025; 85027; 85610; 85730; 86140; 86850; 86900; 86901; 87045; 87046; 87070; 87177; 87209; 87324; 87427; 87449; 88342; 93005; 93970; 96361; 96374; 99285; J1745; J2916

== ENCOUNTER 2024-03-24 11:32 | Outpatient (RCR) | payer OTHER, SELFPAY ==
[2024-03-17] MEDS: VENOFER 110 MG IV (11:45)
[2024-03-17 11:48] VITALS: BP 138/86
[2024-03-17 13:00] VITALS: BP 102/70
[2024-03-24 11:36] VITALS: BP 127/79
[2024-03-24] MEDS: VENOFER 110 MG IV (11:48)
[2024-03-24 12:55] VITALS: BP 116/70
== END 2024-03-25 11:09 | disposition home or self-care (01) ==
LOC: OID 11:32
PROVIDERS: ATTENDING PHYSICIAN Internal Medicine Gastroenterology; FAMILY PHYSICIAN Family Medicine
DX: K51.311 Ulcerative (chronic) rectosigmoiditis with rectal bleeding (principal); E61.1 Iron deficiency
CPT/HCPCS: 96365; J1756

== ENCOUNTER 2024-03-31 07:37 | Outpatient (RCR) | payer OTHER, SELFPAY ==
[2024-03-31 07:55] VITALS: BP 135/97
[2024-03-31] MEDS: VENOFER 110 MG IV (08:06)
[2024-03-31 09:16] VITALS: BP 115/88
== END 2024-04-01 08:38 | disposition home or self-care (01) ==
LOC: OID 07:37
PROVIDERS: ATTENDING PHYSICIAN Internal Medicine Gastroenterology; FAMILY PHYSICIAN Family Medicine
DX: K51.311 Ulcerative (chronic) rectosigmoiditis with rectal bleeding (principal); E61.1 Iron deficiency
CPT/HCPCS: 96365; J1756

== ENCOUNTER 2024-09-08 06:23 | Day surgery (SDC) | payer OTHER, SELFPAY ==
[2024-09-08 14:13] LABS: HCG, Urine Qualitative Screen Negative
== END 2024-09-08 15:42 | disposition home or self-care (01) ==
LOC: GI 06:23
PROVIDERS: ATTENDING PHYSICIAN Internal Medicine Gastroenterology
DX: K51.50 Left sided colitis without complications (principal); K64.0 First degree hemorrhoids
CPT/HCPCS: 45380; 88305; 81025